=== PATIENT | female | born 1960 | race Caucasian/White ===

== ENCOUNTER 2018-03-27 08:09 | Day surgery (SDC) | payer BC ==
[~2018-03-27 08:09] MED LIST: Lactated Ringers 1,000 ML IV SCH
[2018-03-27] MEDS ORDERED: Midazolam 1 MG/ML 2 ML SDV ONE (08:37)
[2018-03-27] MEDS ORDERED: fentaNYL 100 MCG/2 ML SDV ONE (08:37)
[2018-03-27] MEDS ORDERED: Propofol 200 MG/20 ML SDV ONE ×2 (08:37→10:30)
--- NOTE | 2018-03-27 09:35 | PCM.PREANE ---
Preanesthetic Assessment - Anesthesia/Transfusion/Family Hx Anesthesia History: Prior Anesthesia Without Reaction Family History of Anesthesia Reaction: No Transfusion History: No Prior Transfusion(s) Intubation History: Unknown - Review of Systems General: No Symptoms Pulmonary: No Symptoms Cardiovascular: No Symptoms Gastrointestinal: No Symptoms, Other (h/o colon polyp and proctoots) Neurological: No Symptoms Other: Reports: None - Physical Assessment Height: 1.63 m Weight: 89.811 kg ASA Class: 2 Mental Status: Alert & Oriented x3 Dentition: Reports: Normal Dentition, Dentures Thyro-Mental Finger Breadths: 3 Mouth Opening Finger Breadths: 3 ROM/Head Extension: Limited/Partial Lungs: Clear to Auscultation, Normal Respiratory Effort Cardiovascular: Regular Rate, Regular Rhythm - Allergies Allergies/Adverse Reactions: Allergies Allergy/AdvReac Type Severity Reaction Status Date / Time latex Allergy cold sores Verified 03/24/18 07:43 when exposed around oral cavity meperidine HCl [From Demerol] Allergy Rash Verified 03/24/18 07:43 morphine Allergy Rash Verified 03/24/18 07:43 naproxen sodium Allergy makes my Verified 03/24/18 07:43 [From Anaprox] skin crawl metal Allergy "cold Uncoded 03/24/18 07:43 sores when exposure around oral cavity" - Blood Blood Available: No - Anesthesia Plan Pre-Op Medication Ordered: None - Acknowledgements Anesthesia Type Planned: MAC Pt an Appropriate Candidate for the Planned Anesthesia: Yes Alternatives and Risks of Anesthesia Discussed w Pt/Guardian: Yes Pt/Guardian Understands and Agrees with Anesthesia Plan: Yes PreAnesthesia Questionnaire HEENT History: Reports: Other (See Below) Other HEENT History: wears glasses Cardiovascular History: Reports: Other (See Below) (h/o HTN and high cholesterol , now ok without medications) Respiratory History: Reports: Sleep Apnea Other Respiratory History: uses CPAP Gastrointestinal History: Reports: Colon Polyp, Diverticulosis Genitourinary History: Reports: None 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: Musculoskeletal History: Reports: Fracture, Osteoarthritis (hands,feet,spine) Other Musculoskeletal History: hx fx arm Neurological History: Reports: Migraines Psychiatric History: Reports: Depression Endocrine/Metabolic History: Reports: Obesity/BMI 30+ Hematologic History: Reports: Other (See Below) Other Hematologic History: factor V leiden lutation - Past Surgical History Head Surgeries/Procedures: Reports: None GI Surgical History: Reports: Appendectomy, Bariatric Procedure, Colonoscopy (' 15 hyperplastic polyp) Other GI Surgeries/Procedures: gastric sleeve Female Surgical History: Reports: Section, D&C, Oophorectomy (done at time of appendectomy), Tubal Ligation Neurological Surgical History: Reports: C-Spine Other Neurological Surgeries/Procedures: hx neck surgery (arthrodeis) Musculoskeletal Surgical History: Reports: Other (See Below) Other Musculoskeletal Surgeries/Procedures:: hx FB removed from rt index finger - SUBSTANCE USE Smoking Status *Q: Never Smoker Recreational Drug Use History: No - HOME MEDS Home Medications: Home Meds Biotin 1,000 mcg PO DAILY 01/19/15 [History] Docusate Sodium [Stool Softener] 100 mg PO DAILY PRN 01/19/15 [History] Multivitamin [Multivitamins] 1 tab PO DAILY 01/19/15 [History] Venlafaxine [Effexor XR] 150 mg PO DAILY 01/19/15 [History] Estradiol [Yuvafem] 1 tab VAG ASDIRECTED 03/24/18 [History] - CURRENT (IN HOUSE) MEDS Current Meds: Current Medications Lactated Ringer's (Ringers, Lactated) 1,000 mls @ 125 mls/hr IV ASDIRECTED RYLEE Discontinued Medications Fentanyl (Sublimaze) Confirm Administered Dose 100 mcg .ROUTE .STK-MED ONE Stop: 03/27/18 08:38 Lidocaine HCl (Xylocaine-Mpf 1%) Confirm Administered Dose 5 mls @ as directed .ROUTE .STK-MED ONE Stop: 03/27/18 08:39 Midazolam HCl (Versed 1 Mg/Ml) Confirm Administered Dose 2 mg .ROUTE .STK-MED ONE Stop: 03/27/18 08:38 Propofol (Diprivan 20 Ml) Confirm Administered Dose 200 mg .ROUTE .STK-MED ONE Stop: 03/27/18 08:38
--- NOTE | 2018-03-27 11:54 | PCM48HPAN ---
Post Anesthesia Note - EVALUATION WITHIN 48HRS OF ANESTHETIC Vital Signs in Normal Range: Yes Patient Participated in Evaluation: Yes Respiratory Function Stable: Yes Airway Patent: Yes Cardiovascular Function Stable: Yes Hydration Status Stable: Yes Pain Control Satisfactory: Yes Nausea and Vomiting Control Satisfactory: Yes Mental Status Recovered: Yes Resp Rate: 11 - COMMENTS/OBSERVATIONS Free Text/Narrative:: no anesthesia problems
--- NOTE | 2018-03-27 12:26 | PCM.OPNOTE ---
- General Post-Op/Procedure Note Date of Surgery/Procedure: 03/27/18 Operative Procedure(s): Colonoscopy Pre Op Diagnosis: Personal history of colon polyps Post-Op Diagnosis: Sigmoid diverticulosis Anesthesia Technique: MAC (ASA II) Primary Surgeon: Brennan Ventura Condition: Good Free Text/Narrative:: Intake & Output 03/27/18 03/27/18 03/27/18 03:59 11:59 19:59 Intake Total 1100 Balance 1100 DICTATION [id number] CPT CODE 96000
[2018-03-27] MEDS ORDERED: Lactated Ringers 1,000 ML IV SCH (12:30)
--- NOTE | 2018-03-27 12:43 | OR ---
SURGEON: Brennan Ventura M.D. DATE OF PROCEDURE: 03/27/2018 OPERATION PERFORMED: Colonoscopy. ANESTHESIA: MAC. ASA CLASSIFICATION: II. PREOPERATIVE DIAGNOSIS: Personal history of colon polyps. POSTOPERATIVE DIAGNOSIS: Severe sigmoid diverticulosis. DESCRIPTION OF PROCEDURE: The patient was taken to the endoscopy room and positioned on the endoscopy table in the left lateral decubitus position. Time-out was called for appropriate identification of the patient and procedure. Monitored anesthesia care was provided. The colonoscope was inserted into the rectum and advanced with minimal difficulty to the cecum where the colonoscope was retroflexed to visualize the ascending colon from below. The colonoscope was then straightened and slowly withdrawn. The cecum, ascending colon, hepatic flexure, transverse colon, splenic flexure, and descending colon were very well visualized. No tumors, polyps, diverticula, or angiodysplastic changes were noted. There was no evidence of inflammatory bowel disease. Sigmoid colon demonstrates moderate sigmoid diverticulosis. No stricture, spasm, or bleeding was noted. No polyps were encountered in the sigmoid colon. The colonoscope was then withdrawn to the rectum and retroflexed to visualize the anal orifice from above. Again, no tumors or polyps were seen and there were no acute hemorrhoidal changes. The colonoscope was then straightened, the rectum aspirated, and the colonoscope removed. The patient tolerated the procedure well and was taken to recovery room in stable condition. TIMA BROOKS /[id number]
[2018-03-27 13:33] VITALS: BP 140/80
== END 2018-03-27 12:10 | disposition home or self-care (01) ==
LOC: MW.SDS 08:09
PROVIDERS: ATTEND Surgery
DX: Z12.11 Encounter for screening for malignant neoplasm of colon (principal); K57.30 Diverticulosis of large intestine without perforation or abscess without bleeding; M19.90 Unspecified osteoarthritis, unspecified site; G43.909 Migraine, unspecified, not intractable, without status migrainosus; G47.30 Sleep apnea, unspecified; Z99.89 Dependence on other enabling machines and devices; F32.9 Major depressive disorder, single episode, unspecified; Z88.5 Allergy status to narcotic agent; Z88.6 Allergy status to analgesic agent; Z91.040 Latex allergy status; Z91.048 Other nonmedicinal substance allergy status; Z86.010 Personal history of colon polyps; Z80.0 Family history of malignant neoplasm of digestive organs; Z79.899 Other long term (current) drug therapy
CPT/HCPCS: 45378; J2704; J3010; J7120; J2250